=== PATIENT | male | born 1970 | race Caucasian/White ===

== ENCOUNTER 2025-06-18 13:24 | Outpatient (REF) | payer BC, SELFPAY ==
--- NOTE | 2025-06-18 13:00 | PAPNONF_PTH ---
PATIENT: Dylan Cohn LOC: [facility] U#:[id number] AGE/SX: 55/M ROOM: RE06/18/[address]: Nicky Adames : 1970 BED: DIS: 06/18/2025 SPEC #: [id number] RECD: 06/18/25 18:22 STATUS: TASH RECesilia #: [id number] ANNE: 06/18/25 13:[address]: Nicky Adames DEPT: [facility] Cytology RECD BY: Mariela Booker Tissues: 1 - BODY FLUID CYTO-FINE NEEDLE ASPIRATE-[facility] Procedures: BODY FLUID CYTO-FINE NEEDLE ASPIRATE[facility] Comments: [id number] (REFRIGERATED)
== END 2025-06-18 13:25 | disposition home or self-care (01) ==
LOC: LBN 13:24
PROVIDERS: PCP Family Medicine; Visit Provider Registered Nurse Maternal Newborn
DX: R22.1 Localized swelling, mass and lump, neck (principal)
CPT/HCPCS: 88104

== ENCOUNTER 2025-07-01 02:12 | Outpatient (CLI) | payer BC, SELFPAY ==
--- NOTE | 2025-07-01 07:00 | DI.US_ITS ---
Exam(s) US NEEDLE LOCAL OTHER WO RAD EXAM: US NEEDLE LOCAL OTHER WO RAD CLINICAL HISTORY: right sided neck mass,ULTRASOUND GUIDED BX,R22.1. COMPARISON: CT CT SOFT TISSUE NECK W/CONTRAST from 06/05/2025 TECHNIQUE: Ultrasound was provided for Dr. Lei for guidance with biopsy of right neck mass. FINDINGS: Please see procedure note for details. DATA REPOSITORY:
--- NOTE | 2025-07-01 13:00 | LYM_PTH ---
PATIENT: Dylan Cohn LOC: [facility] U#:[id number] AGE/SX: 55/M ROOM: RE07/01/[address]: Nicky Adames : 1970 BED: DIS: 07/01/2025 SPEC #: [id number] RECD: 07/01/25 13:30 STATUS: TASH RECesilia #: [id number] ANNE: 07/01/25 13:[address]: Nicky Adames DEPT: Surgical Specimen RECD BY: Mariela Booker Tissues: 1 - FLOW CYTOMETRY NODE/TISSUE Procedures: FLOW CYTOMETRY LYMPHOMA PNL Comments: [id number] (FLOW CYTOMETRY - [id number])
--- NOTE | 2025-07-01 13:00 | PAPNONF_PTH ---
PATIENT: Dylan Cohn LOC: [facility] U#:[id number] AGE/SX: 55/M ROOM: RE07/01/[address]: Nicky Adames : 1970 BED: DIS: 07/01/2025 SPEC #: [id number] RECD: 07/01/25 13:36 STATUS: TASH RECesilia #: [id number] ANNE: 07/01/25 13:[address]: Nicky Adames DEPT: [facility] Cytology RECD BY: Mariela Booker Tissues: 1 - BODY FLUID CYTO-FINE NEEDLE ASPIRATE-[facility] Procedures: IMMUNOPEROXIDASE STAIN BODY FLUID CYTO-FINE NEEDLE ASPIRATE[facility] Comments: [id number] (PATH FNA CONSULT) (REFRIGERATED)
--- NOTE | 2025-07-01 13:36 | W.PROCNOTE ---
Date of service: 07/01/25 Time of Service: 13:36 Procedure Note Date of procedure: 07/01/25 Procedure: Ultrasound-guided FNA, right lymphadenopathy, pathology present Surgeon/Proceduralist/Physician: Parish Lei Procedure Diagnosis: Right cervical lymphadenopathy Procedure Indications: Patient has right cervical lymphadenopathy of unclear etiology. Office-based FNA was nondiagnostic as such, I recommended that we perform this under ultrasound with pathology present to make sure that we obtain adequate cellularity. Risks including bleeding, infection, and damage to the marginal mandibular nerve were discussed at length again. Verbal consent was obtained. The below was then performed. Procedure Description: The patient was positioned in a supine position and prepped and draped in appropriate fashion. His head was turned slightly to the left. Ultrasound was used to localize the lymph nodes in question in the right neck and then 2% lidocaine with 1/100,000 epinephrine was injected in the skin and subcutaneous tissues overlying the lymph nodes. Under ultrasound guidance, a 25-gauge needle was passed into the thyroid nodule and passed repeatedly through the thyroid nodule. The specimen was then handed to pathology who verified adequate cellularity. 4 additional passes were made for further potential analysis as well as for flow cytometry. The patient tolerated the procedure well. After ensuring adequate hemostasis, a sterile dressing was applied the patient was allowed to sit, stand, and then ambulate. His vitals remained stable. He was able to ambulate afterwards without difficulty. He will remove the bandage in a couple hours. He will call with any signs of infection or any concerns. He may use Tylenol or ibuprofen for any discomfort. He will call if he does not hear from me with regard to pathology results within a week. He and his had no further questions. They are comfortable with the plan.
== END 2025-07-01 02:32 ==
LOC: DI 02:12
PROVIDERS: PCP Family Medicine; Visit Provider Registered Nurse Maternal Newborn
DX: R59.0 Localized enlarged lymph nodes (principal); R22.1 Localized swelling, mass and lump, neck
CPT/HCPCS: 10005; 76942; 88104; 88184; 88185; 88361

== ENCOUNTER 2025-09-29 00:33 | Outpatient (RCR) | payer BC, SELFPAY ==
[2025-09-16 09:37] LABS: Abs Immature Grans 0.03 10^3/uL (0.0-0.06); HCT 43.5 % (40.0-50.0); HGB 14.6 g/dL (13.5-17.5); Immature Grans % 0.5 %; MCH 29.4 pg (27.0-33.0); MCHC 33.6 % (32.0-36.0); MCV 88 fL (80-95); MPV 9.9 fL (8.0-11.0); Platelet Count 260 10^3/uL (130-400); RBC 4.96 10^6/uL (4.36-5.78); RDW 12.6 % (11.8-14.1); RDW-SD 40.4 fL; WBC 6.50 10^3/uL (4.4-10.8)
[2025-09-16] MEDS: Normal Saline Flush 10 ML SYR IVP (09:47)
[2025-09-16 10:00] LABS: Magnesium 1.7 mg/dL (1.6-2.6)
[2025-09-16 10:01] LABS: ALT 43 U/L (10-49); AST 21 U/L (<34); Albumin 4.3 g/dL (3.2-5.0); Alkaline Phosphatase 66 U/L (46-116); Anion Gap 6.7 mmol/L (3-11); BUN 14 mg/dL (9-23); Bilirubin, Total 0.4 mg/dL (0.2-1.2); CO2 29.3 mmol/L (20.0-31.0); Calcium 9.0 mg/dL (8.3-10.6); Chloride 104 mmol/L (98-107); Glucose 196 mg/dL (74-106); Potassium 3.9 mmol/L (3.5-5.1); Sodium 140 mmol/L (136-145); Total Protein 7.0 g/dL (5.7-8.2)
[2025-09-22 10:03] LABS: Abs Immature Grans 0.11 10^3/uL (0.0-0.06); HCT 45.8 % (40.0-50.0); HGB 15.7 g/dL (13.5-17.5); Immature Grans % 1.0 %; MCH 30.1 pg (27.0-33.0); MCHC 34.3 % (32.0-36.0); MCV 88 fL (80-95); MPV 9.8 fL (8.0-11.0); Platelet Count 315 10^3/uL (130-400); RBC 5.21 10^6/uL (4.36-5.78); RDW 12.3 % (11.8-14.1); RDW-SD 39.9 fL; WBC 10.87 10^3/uL (4.4-10.8)
[2025-09-22] MEDS: Normal Saline Flush 10 ML SYR IVP (10:09)
[2025-09-22 10:19] LABS: Magnesium 1.5 mg/dL (1.6-2.6)
[2025-09-22 10:21] LABS: ALT 59 U/L (10-49); AST 21 U/L (<34); Albumin 4.3 g/dL (3.2-5.0); Alkaline Phosphatase 74 U/L (46-116); Anion Gap 9.4 mmol/L (3-11); BUN 22 mg/dL (9-23); Bilirubin, Total 0.5 mg/dL (0.2-1.2); CO2 29.0 mmol/L (20.0-31.0); Calcium 9.3 mg/dL (8.3-10.6); Chloride 99 mmol/L (98-107); Glucose 169 mg/dL (74-106); Potassium 3.7 mmol/L (3.5-5.1); Sodium 137 mmol/L (136-145); Total Protein 7.0 g/dL (5.7-8.2)
[2025-09-29] MEDS: Normal Saline Flush 10 ML SYR IVP (09:12)
[2025-09-29 09:22] LABS: Abs Immature Grans 0.07 10^3/uL (0.0-0.06); HCT 39.9 % (40.0-50.0); HGB 13.5 g/dL (13.5-17.5); Immature Grans % 0.8 %; MCH 29.5 pg (27.0-33.0); MCHC 33.8 % (32.0-36.0); MCV 87 fL (80-95); MPV 9.5 fL (8.0-11.0); Platelet Count 266 10^3/uL (130-400); RBC 4.58 10^6/uL (4.36-5.78); RDW 12.3 % (11.8-14.1); RDW-SD 39.0 fL; WBC 9.01 10^3/uL (4.4-10.8)
[2025-09-29 09:41] LABS: ALT 42 U/L (10-49); AST 15 U/L (<34); Albumin 4.0 g/dL (3.2-5.0); Alkaline Phosphatase 70 U/L (46-116); Anion Gap 5.8 mmol/L (3-11); BUN 18 mg/dL (9-23); Bilirubin, Total 0.4 mg/dL (0.2-1.2); CO2 30.5 mmol/L (20.0-31.0); Calcium 9.1 mg/dL (8.3-10.6); Chloride 100 mmol/L (98-107); Glucose 224 mg/dL (74-106); Magnesium 1.4 mg/dL (1.6-2.6); Potassium 3.8 mmol/L (3.5-5.1); Sodium 136 mmol/L (136-145); Total Protein 6.5 g/dL (5.7-8.2)
== END 2025-10-01 23:59 | disposition home or self-care (01) ==
LOC: INF 00:33
PROVIDERS: PCP Family Medicine; Visit Provider Nurse Practitioner
DX: Z45.2 Encounter for adjustment and management of vascular access device (principal); C09.9 Malignant neoplasm of tonsil, unspecified
CPT/HCPCS: 36591; 80053; 83735; 85025